=== PATIENT | male | born 1975 | race African-American/Black ===

== ENCOUNTER 2018-03-19 16:41 | Emergency (ER) | payer OTHER ==
[~2018-03-19] VITALS: Ht 160 cm; Wt 54.4 kg
[2018-03-19 16:51] VITALS: BP 109/81
[2018-03-19] MEDS ORDERED: Acetaminophen 500mg (ES) tab ORAL ONE (17:30)
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
[2018-03-19 19:19] VITALS: BP 118/85
--- NOTE | 2018-03-20 08:59 | Diagnostic Imaging Report ---
Indication: Pain Technique: Continuous helical CT scanning of the head was performed without intravenous contrast material. Axial and coronal 5 mm sections were generated. Radiation dose was minimized using automated exposure control Dose: Total Dose Length Product - DLP 1404.[address] Dose Index - CTDIvol(s) 70.38 mGy. Comparison: none Findings: The ventricular system is normal in size and configuration. There is no shift of midline structures. No abnormal extra-axial fluid collections are noted. There is no evidence of intracerebral bleeding. No other abnormal high or low density areas are noted within the brain. There is a mucous retention cyst in the right maxillary sinus. The orbits are unremarkable. The calvarium is intact. Impression: Normal CT scan of the head without contrast material. Incidental finding right maxillary sinus mucous retention cyst This agrees with the preliminary interpretation provided overnight by [facility]. The CT scanner at [facility] is accredited by the [employer] and the scans are performed using protocols designed to limit radiation exposure to as low as reasonably achievable to attain images of sufficient resolution adequate for diagnostic evaluation.
== END 2018-03-19 21:34 | disposition home or self-care (01) ==
LOC: EDBD 16:41 → EMR 19:19
DX: R44.0 Auditory hallucinations (principal); S09.90XA Unspecified injury of head, initial encounter; W22.8XXA Striking against or struck by other objects, initial encounter; Y93.9 Activity, unspecified; Y92.9 Unspecified place or not applicable
CPT/HCPCS: 70450; 99284